=== PATIENT | male | born 1950 | race Two or more races ===

== ENCOUNTER 2022-10-04 07:54 | Inpatient (IN) | payer MEDICARE, OTHER ==
[~2022-10-04] VITALS: Ht 180.3 cm; Wt 44.9 kg
--- NOTE | 2022-10-04 08:20 | NUR ---
ESTABLISHED IV ACCESS, 20G LEFT AC. BLOOD DRAWN INCLUDING CULTURES AND SENT TO LAB.
[2022-10-04] MEDS ORDERED: ACET-868 GT (08:21)
[2022-10-04] MEDS ORDERED: AMIN30LI2 GT (08:21)
[2022-10-04] MEDS ORDERED: DOCU-141 GT (08:21)
[2022-10-04] MEDS ORDERED: CLOP75TA15 GT (08:21)
[2022-10-04] MEDS ORDERED: BISA10SU11 RC (08:21)
[2022-10-04] MEDS ORDERED: OLAN2.5T3 GT (08:21)
[2022-10-04] MEDS ORDERED: LEVO125T8 GT (08:21)
[2022-10-04] MEDS ORDERED: NUTR250L61 GT ×2 (08:21)
[2022-10-04] MEDS ORDERED: AMLO5TAB4 GT (08:21)
[2022-10-04] MEDS ORDERED: MAGN400O6 GT (08:21)
[2022-10-04] MEDS ORDERED: NA P133E RC (08:21)
[2022-10-04] MEDS ORDERED: CRAN3875 GT (08:21)
[2022-10-04] MEDS ORDERED: ASPI-1169 GT (08:21)
[2022-10-04 08:29] LABS: BASOPHILS % (AUTO) 0.2 % (0.0-2.0); EOSINOPHILS % (AUTO) 2.3 % (0.0-6.0); HEMATOCRIT 28 % (39-51); HEMOGLOBIN 8.8 g/dL (13.5-17.5); LYMPHOCYTES # (AUTO) 0.6 K/uL (0.8-4.8); LYMPHOCYTES % (AUTO) 13.6 % (20.0-44.0); MEAN CORPUSCULAR HGB CONC 32 g/dl (31.0-36.0); MEAN CORPUSCULAR VOLUME 91 fL (80-96); MONOCYTES # (AUTO) 0.2 K/uL (0.1-1.30); NEUTROPHILS # (AUTO) 3.7 K/uL (1.8-8.9); NEUTROPHILS % (AUTO) 79.9 % (43.0-81.0); PLATELET COUNT (AUTO) 296 K/uL (150-450); RED BLOOD CELL COUNT(AUTO) 3.05 MIL/uL (4.5-6.0); WHITE BLOOD COUNT (AUTO) 4.6 K/uL (4.3-11.0)
[2022-10-04 08:43] LABS: ALANINE AMINOTRANSFERASE 53 U/L (12-78); ALBUMIN 2.6 g/dL (3.4-5.0); ALKALINE PHOSPHATASE 152 U/L (46-116); ASPARTATE AMINOTRANSFERASE 79 U/L (15-37); BILIRUBIN,DIRECT 0.1 mg/dL (0.0-0.2); BILIRUBIN,TOTAL 0.3 mg/dL (0.2-1.0); CALCIUM, SERUM 9.5 mg/dL (8.5-10.1); CARBON DIOXIDE 37 mmol/L (21-32); CHLORIDE 112 mmol/L (98-107); CREATININE 0.9 mg/dL (0.6-1.3); GLUCOSE 96 mg/dL (74-106); POTASSIUM 4.5 mmol/L (3.5-5.1); SODIUM SERUM 150 mmol/L (136-145); TOTAL PROTEIN, SERUM 6.8 g/dL (6.4-8.2); UREA NITROGEN, BLOOD 62 mg/dL (7-18)
--- NOTE | 2022-10-04 09:25 | NUR ---
covid swab collected and sent to lab
[2022-10-04] MEDS ORDERED: IV NS 0.9% 500 ML BAG IV ONE (09:30)
--- NOTE | 2022-10-04 11:01 | NUR ---
GOT BED 313-1.
--- NOTE | 2022-10-04 11:35 | NUR ---
INFORMED SENDING FACILITY, [facility], PATIENT WILL BE ADMITTED TO HOSPITAL
--- NOTE | 2022-10-04 11:50 | NUR ---
Report given to Aubrey MOISE for inpatient admission
[2022-10-04 12:30] VITALS: BP 113/67
--- NOTE | 2022-10-04 12:30 | NUR ---
RN NOTE- PT BROUGHT FROM ED FOR ADMISSION TELE / CACHECTIA/ HYPERNATREMIA. BEGIN ADMISSION PROCESS
--- NOTE | 2022-10-04 12:31 | NUR ---
WHEEL OF FORTUNE DEALER NOTE- 71-YEAR-OLD MALE ADMITTED FROM [facility] FOR HYPERNATREMIA AND CACHEXIA. PT IS 69 IN TALL AND 90 LBS. SOMNOLENT, LETHARGIC, NONVERBAL, AND CONTRACTED. VS BP 116/68, HR 61, RR 14, TEMP 97.9, O2 SAT 97% RA, PMHX DEMENTIA, PSYCHOSIS, GERD, PNA, HTN. PT HAS GT PLACEMENT 04/06, CURRENTLY NA 150, BLOOD CULTURES PENDING, DEHYDRATION WITH BUN AT 62, PT HAS NKA AND IS ON PLAVIX FOR VTE OF 2. SKIN WITH MULTIPLE SKIN TEARS, BRUISES, AND SCABS, RASH TO TRUNK AND TORSO, PHOTOS TAKEN AND DRESSINGS APPLIED. DR. FREEMAN SAW PT AND PLACED ORDERS. PT PUT ON BILATERAL WRIST RESTRAINTS FOR CLIMBING OUT OF BED AND REMOVING IV. IV FLUIDS 1/2 NS @ 75 ML/HR TO #22 RIGHT HAND INFUSING. ORDERS RECEIVED AND COMPLIED WITH. SIDE RAILS UP, ALARM ON, BED LOCKED. WILL MONITOR AND ASSIST.
[2022-10-04] MEDS ORDERED: MAG HYDROX/AL HYDROX/SIMETH 30 ML UDC GT PRN (13:30)
[2022-10-04] MEDS ORDERED: BISACODYL SUPP (10 MG) 10 MG/SUPP.RECT SUPP.RECT RC PRN (13:30)
[2022-10-04] MEDS ORDERED: Z GUARD REMEDY 4 OZ OINT TP PRN (13:30)
[2022-10-04] MEDS ORDERED: ONDANSETRON HCL/PF 4 MG/2 ML VIAL IVP PRN (13:30)
[2022-10-04] MEDS ORDERED: HYDROCODONE/APAP 5/325MG TABLET GT PRN (13:30)
[2022-10-04] MEDS ORDERED: MAGNESIUM HYDROXIDE 30 ML UDC GT PRN (13:30)
[2022-10-04] MEDS ORDERED: NA PHOS,M-B/NA PHOS,DI-BA 1 EA ENEMA RC PRN (13:30)
[2022-10-04] MEDS ORDERED: ACETAMINOPHEN 650 MG/20.3 ML UDC GT PRN (14:00)
[2022-10-04] MEDS: IV 1/2NS 1000 ML 1,000 ML IV PRN (14:21)
[2022-10-04 16:00] VITALS: BP 111/62
--- NOTE | 2022-10-04 16:00 | NUR ---
RN NOTE- GT PLACEMENT CHECKED. GT PATENT, FLUSHED. AWAITING DIETARY ORDERS FOR GT START.
[2022-10-04] MEDS: OLANZAPINE 2.5 MG TABLET GT SCH (16:33)
--- NOTE | 2022-10-04 18:00 | NUR ---
RN NOTE- JEVITY VIA GT AT 60/HR INITIATED. HOB UP AT 45. TOLERATING WELL.
--- NOTE | 2022-10-04 18:36 | NUR ---
RN CLOSING NOTE- PT LETHARGIC, SOMNOLENT. GT RUNNING JEVITY AT 60/HR. HOB UP. WRIST RESTRAINTS BILATERALLY IN PLACE. WOUNDS / SKIN TEARS COVERED W DRESSINGS. ALL NEEDS ATTENDED. IVF 1/2 NS AT 75/HR TO LEFT HAND #22G. SIDE RAILS UP, ALARM SET. MONITOR / ASSIST
--- NOTE | 2022-10-04 19:59 | NUR ---
MS RN OPENING NOTES: RECEIVED PATIENT AWAKE IN BED, BED IN LOW POSITION, CALL LIGHTS WITHIN REACH NO COMPLAIN OF PAIN AND DISCOMFORT AT THIS TIME ON ROOM AIR SATURATING WELL, PATIENT IS CONFUSED NONE VERBAL, ON NPO ON G TUBE FEEDING OF JEVITY @60ML/HR INFUSING WELL, HOB TO REMAIN AT 45 DEGREE IV LINE AT LEFT HAND #22 WITH ONGOING D5 1/2 NSS@75ML/HR INFUSING WELL, PATIENT ON BILATERAL SOFT WRIST RESTRAINT, KEPT CLEAN AND DRY ALL NEEDS MET WILL CONTINUE TO MONITOR.
[2022-10-04 20:00] VITALS: BP 128/71
[2022-10-04 20:16] VITALS: BP 128/71
[2022-10-05] VITALS (18 sets, daily range): BP systolic 55–105; BP diastolic 28–51
[2022-10-05] MEDS: IV 1/2NS 1000 ML 1,000 ML IV PRN ×3 (03:06→19:28)
--- NOTE | 2022-10-05 06:30 | NUR ---
RN NOTES: RECEIVED A LAB FOR PATIENTS BLOOD CULTURE RESULT IS POSITIVE FOR GRAM NEGATIVE RODS, NOTIFY U.S. SENATOR ALYCE AND ORDER VANCOMYCIN 1 GRAM ONE TIME AND PHARMACY TO DOSE, VANCO TROUGH AT 10/06/22 NOTED AND CARRY OUT.
--- NOTE | 2022-10-05 06:50 | NUR ---
MS RN CLOSING NOTES: RECEIVED PATIENT SLEEP IN BED COMFORTABLY BED IN LOW POSITION CALL LIGHTS WITHIN REACH, NO COMPLAIN OF PAIN AND DISCOMFORT AT THIS TIME, ON O2 INHALATION AT 2LPM SATURATING WELL, PATIENT IS A/OX0 NONE VERBAL, OPENS EYES, ON NPO , ON G TUBE FEEDING OF JEVITY1.2 @60ML/HR, IV LINE AT L HAND #22 WITH ONGOING 1/2 NSS@75ML/HR INFUSING WELL, PATIENT KEPT CLEAN AND DRY ALL NEEDS MET WILL CONTINUE TO MONITOR.
--- NOTE | 2022-10-05 07:00 | NUR ---
MS RN OPENING NOTES: RECEIVED PATIENT AWAKE IN BED IN LOW POSITION CALL LIGHTS WITHIN REACH, ON SOFT RESTRAINT, PATIENT IS PATIENT IS A/O X0, NON-VERBAL, HOWEVER RESPONDING WITH LITTLE MOVEMENTS, OPEN AND CLOSES EYES, NO COMPLAIN OF PAIN AND DISCOMFORT AT THIS TIME. ON O2 INHALATION AT 2LPM SATURATING WELL, ON G TUBE FEEDING OF JEVITY1.2 @60ML/HR, IV LINE AT L HAND #22 WITH ONGOING 1/2 NSS@75ML/HR INFUSING WELL, WILL CONTINUE TO MONITOR THE PATIENT.
[2022-10-05 07:23] LABS: BASOPHILS % (AUTO) 0.1 % (0.0-2.0); EOSINOPHILS % (AUTO) 0.3 % (0.0-6.0); HEMATOCRIT 26 % (39-51); HEMOGLOBIN 8.1 g/dL (13.5-17.5); LYMPHOCYTES # (AUTO) 0.2 K/uL (0.8-4.8); LYMPHOCYTES % (AUTO) 5.8 % (20.0-44.0); MEAN CORPUSCULAR HGB CONC 31 g/dl (31.0-36.0); MEAN CORPUSCULAR VOLUME 93 fL (80-96); MONOCYTES # (AUTO) 0.2 K/uL (0.1-1.30); MONOCYTES % (AUTO) 4.5 % (2.0-12.0); NEUTROPHILS # (AUTO) 3.6 K/uL (1.8-8.9); NEUTROPHILS % (AUTO) 89.3 % (43.0-81.0); PLATELET COUNT (AUTO) 181 K/uL (150-450); RED BLOOD CELL COUNT(AUTO) 2.76 MIL/uL (4.5-6.0)
[2022-10-05 07:39] LABS: CALCIUM, SERUM 8.8 mg/dL (8.5-10.1); CREATININE 0.8 mg/dL (0.6-1.3); PHOSPHORUS 3.3 mg/dL (2.5-4.9); POTASSIUM 4.4 mmol/L (3.5-5.1)
[2022-10-05 07:49] LABS: THYROID STIMULATING HORMONE 58.787 uIU/mL (0.358-3.74)
[2022-10-05] MEDS ORDERED: VANCOMYCIN 1 GM in IV D5W 250ml IV ONE (08:00)
[2022-10-05] MEDS: OLANZAPINE 2.5 MG TABLET GT SCH ×2 (08:38→17:35)
[2022-10-05] MEDS: LEVOTHYROXINE SODIUM 125 MCG TABLET GT SCH (08:38)
[2022-10-05] MEDS: ASPIRIN 81 MG TAB.CHEW GT SCH (08:38)
[2022-10-05] MEDS: PANTOPRAZOLE 40 MG/PACK PACK NG SCH (08:38)
[2022-10-05] MEDS: CLOPIDOGREL BISULFATE 75 MG TABLET GT SCH (08:38)
[2022-10-05] MEDS: DOCUSATE SODIUM LIQ 100 MG/10 ML UDC GT SCH (08:41)
[2022-10-05] MEDS: PROSOURCE / PROSTAT (PYXIS) 30 ML UDC GT SCH (09:00)
--- NOTE | 2022-10-05 09:25 | NUR ---
WOUND CARE CONSULT: PT PRESENTS WITH EXTREME CACHEXIA AND MULTIPLE SKIN ISSUES/WOUNDS, PRESENT ON ADMISSION INCLUDING LEFT CHEEK SKIN TEAR, LEFT ELBOW SKIN TEAR, RT LOWER LEG WOUND, DISCOLORATION TO BILATERAL FEET, GENERALIZED SKIN CONDITION/RASH WITH TINY SCABS ALL OVER BODY, RT HIP WOUND, RT SHOULDER WOUND AND DISCOLORATION TO LEFT GROIN REGION (UNKNOWN ETIOLOGY). DR FERRELL IN TO SEE PT. DR STAHL AND DR FAIR CALLED FOR SURGICAL AND DPM CONSULTS. DISCUSSED SKIN PROTECTION WITH NURSING STAFF. IN AGREEMENT WITH PLAN OF CARE. Addendum: 10/05/22 at 0927 by ALIN LEACH WNDNU Amended: Links added.
--- NOTE | 2022-10-05 10:35 | NUR ---
Patient unable to urinate on a urinalysis order. Waiting for an hour before requesting a straight noel order for some urine sample
--- NOTE | 2022-10-05 11:45 | NUR ---
MALE CONDOM INSERTED FOR URINE SAMPLE COLLECTION
[2022-10-05] MEDS ORDERED: OSMOLITE 1.2 CAL 1,000 ML LIQUID GT PRN (12:00)
--- NOTE | 2022-10-05 13:50 | NUR ---
UNABLE TO EXTRACT URINE UP TO THIS TIME
--- NOTE | 2022-10-05 18:20 | NUR ---
OBSERVED AND ASSESSED PATIENT ON SHALLOW BREATHING SPO2 AT 84 SHOWING SUDDEN UNRESPONSIVENESS WITH ABNORMAL VITAL SIGNS. PATIENT'S BP TAKEN 3X READING HYPOTENSIVE. IMMEDIATELY CALLED CHARGE NURSE FOR RAPID RESPONSE ACTIVATION. ORDERED STAT: ABG, BOLUS 250 CC 0.9 NS. BP TAKEN AFTER BOLUS RESULTED TO 80/48. SPO2 AT 99. IMMEDIATELY TRANSFERRED TO ICU. INFORMED
[2022-10-05] MEDS ORDERED: IV NS 0.9% 250 ML IV ONE (19:00)
--- NOTE | 2022-10-05 19:11 | NUR ---
VEGETABLE LOADER MACHINE OPERATOR OPENING NOTE PT RECEIVED S/P RAPID RESPONSE WITH INITIAL BP OF 84/32. AFTER BOLUS WITH NS 250 ML, BP 80/48; SEVERELY BRADYCARDIC AND HYPOTHERMIC WITH HR IN THE 30S AND INITIAL RECTAL TEMP OF 78.8. KRISETN HUGGER APPLIED AT THIS TIME. PT A/O X0, NON-VERBAL. PT ON SIMPLE FACE MASK AT 10L WITH CURRENT O2SAT OF 100%; NO S/S OF RESP DISTRESS, NO SOB OR COUGH, NON-LABORED AND EQUAL BREATHING. PT ATTACHED TO BEDSIDE MONITOR, SB WITH HR IN LOW 30S. NOTED TO HAVE PEG TUBE; NO FEEDING CURRENTLY INFUSING. IV ACCESS ON LEFT HAND 22G, INTACT AND PATENT; 1/2 NS INFUSING AT 75 ML/HR. BED IN LOWEST POSITION, CALL LIGHT WITHIN REACH, SIDE RAILS UP X3. WILL CONTINUE TO MONITOR THROUGHOUT THE NIGHT.
[2022-10-05 19:41] LABS: CALCIUM, SERUM 8.5 mg/dL (8.5-10.1); POTASSIUM 4.2 mmol/L (3.5-5.1)
[2022-10-05 20:09] LABS: BASOPHILS % (AUTO) 0.1 % (0.0-2.0); EOSINOPHILS % (AUTO) 0.5 % (0.0-6.0); HEMATOCRIT 25 % (39-51); HEMOGLOBIN 7.8 g/dL (13.5-17.5); LYMPHOCYTES # (AUTO) 0.1 K/uL (0.8-4.8); LYMPHOCYTES % (AUTO) 8.1 % (20.0-44.0); MEAN CORPUSCULAR HGB CONC 31 g/dl (31.0-36.0); MEAN CORPUSCULAR VOLUME 96 fL (80-96); MONOCYTES # (AUTO) 0.1 K/uL (0.1-1.30); MONOCYTES % (AUTO) 3.9 % (2.0-12.0); NEUTROPHILS # (AUTO) 1.5 K/uL (1.8-8.9); NEUTROPHILS % (AUTO) 87.4 % (43.0-81.0); PLATELET COUNT (AUTO) 144 K/uL (150-450); RED BLOOD CELL COUNT(AUTO) 2.61 MIL/uL (4.5-6.0)
[2022-10-05] MEDS: VANCOMYCIN 500 MG in IV D5W 100ml IV SCH (20:09)
[2022-10-05 20:32] LABS: WHITE BLOOD COUNT (AUTO) 1.7 K/uL (4.3-11.0)
--- NOTE | 2022-10-05 20:36 | NUR ---
RN NOTE PT'S BP OF 70/33, HR 31. DR. FERRELL INFORMED WITH ORDER FOR DOPAMINE WITH BP PARAMETER OF SBP <80. ORDER OBTAINED AND CARRIED OUT.
[2022-10-05] MEDS ORDERED: DOPamine 400 MG/D5W 250 ML RTU BAG IV PRN (21:00)
[2022-10-05] MEDS: DOPamine 400 MG in IV D5W 250 ML IV PRN (21:04)
--- NOTE | 2022-10-05 21:51 | NUR ---
RN NOTE CRITICAL FROM LAB, WBC 1.7 NOTED TO BE TRENDING DOWN FROM 4. GHASSAN NOTIFIED WITH ORDER FOR ZOSYN 3.375 GM IV Q6H. ORDER CARRIED OUT
[2022-10-05] MEDS ORDERED: NOREPINEPHRINE 8 MG in IV NS 0.9% 242 ML IV PRN (22:00)
[2022-10-05] MEDS ORDERED: PIPERACILLIN /TAZOBACTAM 3.375 G VIAL IV ONE (23:45)
[2022-10-05] MEDS: ZOSYN IVPB 3.375 G in IV D5W 50ml IV SCH (23:50)
[2022-10-06] VITALS (93 sets, daily range): BP systolic 46–159; BP diastolic 21–85
[2022-10-06] MEDS ORDERED: NOREPINEPHRINE 4 MG/4 ML AMPUL IV ONE (01:27)
[2022-10-06 04:16] LABS: BASOPHILS % (AUTO) 0.3 % (0.0-2.0); EOSINOPHILS % (AUTO) 0.8 % (0.0-6.0); HEMATOCRIT 28 % (39-51); HEMOGLOBIN 8.9 g/dL (13.5-17.5); LYMPHOCYTES # (AUTO) 0.1 K/uL (0.8-4.8); LYMPHOCYTES % (AUTO) 6.9 % (20.0-44.0); MEAN CORPUSCULAR HGB CONC 32 g/dl (31.0-36.0); MEAN CORPUSCULAR VOLUME 92 fL (80-96); MONOCYTES % (AUTO) 2.2 % (2.0-12.0); NEUTROPHILS # (AUTO) 0.7 K/uL (1.8-8.9); NEUTROPHILS % (AUTO) 89.8 % (43.0-81.0); PLATELET COUNT (AUTO) 218 K/uL (150-450); RED BLOOD CELL COUNT(AUTO) 3.02 MIL/uL (4.5-6.0)
[2022-10-06 04:23] LABS: ALBUMIN 2.1 g/dL (3.4-5.0); BILIRUBIN,TOTAL 0.3 mg/dL (0.2-1.0); CALCIUM, SERUM 8.4 mg/dL (8.5-10.1); CREATININE 1.2 mg/dL (0.6-1.3); MAGNESIUM 2.5 mg/dL (1.8-2.4); POTASSIUM 3.9 mmol/L (3.5-5.1); TOTAL PROTEIN, SERUM 5.8 g/dL (6.4-8.2)
[2022-10-06 04:26] LABS: WHITE BLOOD COUNT (AUTO) 0.8 K/uL (4.3-11.0)
[2022-10-06] MEDS ORDERED: DEXTROSE 50%-WATER 50 ML DISP.SYRIN IVP STA ×2 (04:28→04:34)
[2022-10-06] MEDS ORDERED: BLOOD SUGAR DIAGNOSTIC 1 EACH STRIP IN SCH ×2 (04:30→05:00)
[2022-10-06 05:28] LABS: BAND % (MANUAL) 6 % (0.0-5.0); BASOPHILS % (MANUAL) 0 % (0.0-2.0); EOSINOPHILS % (MANUAL) 0 % (0-4); LYMPHOCYTES % (MANUAL) 9 % (16-48); MONOCYTES % (MANUAL) 4 % (0-11.0); NEUTROPHILS % (MANUAL) 81 (42-76)
[2022-10-06] MEDS ORDERED: PIPERACILLIN /TAZOBACTAM 3.375 G VIAL IV ONE (05:42)
[2022-10-06] MEDS ORDERED: DOPamine 400MG/D5W 250ML RTU 250 ML ONE (05:43)
[2022-10-06] MEDS: DOPamine 400 MG in IV D5W 250 ML IV PRN (05:44)
[2022-10-06] MEDS: ZOSYN IVPB 3.375 G in IV D5W 50ml IV SCH (05:53)
[2022-10-06] MEDS ORDERED: IV D5/0.45 NACL 1,000 ML IV PRN (06:00)
[2022-10-06] MEDS ORDERED: HYDROCORTISONE SOD SUCCINATE 100 MG/2 ML VIAL IV ONE (08:00)
[2022-10-06] MEDS: HYDROCORTISONE SOD SUCCINATE 100 MG/2 ML VIAL IV SCH ×3 (08:30→20:20)
[2022-10-06] MEDS: CLOPIDOGREL BISULFATE 75 MG TABLET GT SCH (08:31)
[2022-10-06] MEDS: DOCUSATE SODIUM LIQ 100 MG/10 ML UDC GT SCH (08:31)
[2022-10-06] MEDS: OLANZAPINE 2.5 MG TABLET GT SCH ×2 (08:31→17:41)
[2022-10-06] MEDS: PANTOPRAZOLE 40 MG/PACK PACK NG SCH (08:31)
[2022-10-06] MEDS: ASPIRIN 81 MG TAB.CHEW GT SCH (08:31)
[2022-10-06] MEDS: LEVOTHYROXINE SODIUM 125 MCG TABLET GT SCH (08:34)
[2022-10-06 08:47] LABS: THYROID STIMULATING HORMONE 44.343 uIU/mL (0.358-3.74)
[2022-10-06] MEDS: LEVOTHYROXINE INJ 100 MCG VIAL IV SCH (09:16)
[2022-10-06] MEDS: PROSOURCE / PROSTAT (PYXIS) 30 ML UDC GT SCH (09:18)
[2022-10-06 09:19] LABS: ABG OXYGEN SATURATION 98.4 % (92.0-98.5); ABG PCO2 51.1 mmHg (35.0-45.0); ABG PH 7.384 (7.350-7.450); AaDO2 534.9 mmHg; MetHb 0.1 % (0.0-1.5); O2Hb 98.3 % (94.0-97.0); SITE, ABG Right Femoral; VENT MODE, BG NON REBREATHER
[2022-10-06] MEDS: VANCOMYCIN 500 MG in IV D5W 100ml IV SCH ×2 (09:55→20:07)
[2022-10-06 10:14] LABS: BAND % (MANUAL) 20 % (0.0-5.0); LYMPHOCYTES % (MANUAL) 17 % (16-48); MONOCYTES % (MANUAL) 8 % (0-11.0); NEUTROPHILS % (MANUAL) 55 (42-76)
[2022-10-06] MEDS: IV D5/0.45 NACL 1,000 ML IV PRN ×2 (11:00→22:41)
[2022-10-06] MEDS: NOREPINEPHRINE 32 MG in IV NS 0.9% 242 ML IV PRN (11:08)
[2022-10-06] MEDS: D5W IV PRN (11:18)
[2022-10-06] MEDS: DOPAMINE IV PRN (11:18)
[2022-10-06] MEDS: PIPERACILLIN /TAZOBACTAM 3.375 G in IV D5W 50 ML IV SCH ×3 (12:47→23:55)
--- NOTE | 2022-10-06 19:30 | NUR ---
PT RECEIVED ASLEEP WITH INITIAL BP OF 53/21. INCREASED LEVO TO 1.0. RECHECKED BP 106/57. HYPOTHERMIC WITH INITIAL TEMP OF 96.0. KRISTEN HUGGER IN PLACE. PT A/O X0, NON-VERBAL. PT ON NRB MASK AT 15L WITH CURRENT O2SAT OF 83%; NOTED TO HAVE PEG TUBE IN PLACE; FEEDING CURRENTLY ON HOLD TO PREVENT ASPIRATION. IV ACCESS ON LEFT HAND 20G, RT THUMB 20G; CUONG ML INFUSING D5 1/2 NS INFUSING AT 75 ML/HR. LEVO AND DOPAMIN NEEDED AND ORDERED. SAFETY MEASURES IN PLACE. HEAD OF BED ON SEMI FOWLERS POSITION, HEIGHT OF BED IN LOWEST POSITION, CALL LIGHT WITHIN REACH, SIDE RAILS UP X3. WILL CONTINUE TO MONITOR AND WILL CONTINUE PLAN OF CARE.
[2022-10-07] VITALS (90 sets, daily range): BP systolic 54–247; BP diastolic 22–120
[2022-10-07] MEDS: NOREPINEPHRINE 32 MG in IV NS 0.9% 242 ML IV PRN ×2 (00:09→13:44)
[2022-10-07 03:53] LABS: ALANINE AMINOTRANSFERASE 55 U/L (12-78); ALBUMIN 1.8 g/dL (3.4-5.0); ALKALINE PHOSPHATASE 79 U/L (46-116); ASPARTATE AMINOTRANSFERASE 100 U/L (15-37); BILIRUBIN,TOTAL 0.4 mg/dL (0.2-1.0); CALCIUM, SERUM 7.9 mg/dL (8.5-10.1); CARBON DIOXIDE 29 mmol/L (21-32); CHLORIDE 110 mmol/L (98-107); CREATININE 1.8 mg/dL (0.6-1.3); GLUCOSE 72 mg/dL (74-106); MAGNESIUM 2.4 mg/dL (1.8-2.4); PHOSPHORUS 4.7 mg/dL (2.5-4.9); SODIUM SERUM 146 mmol/L (136-145); TOTAL PROTEIN, SERUM 5.7 g/dL (6.4-8.2); UREA NITROGEN, BLOOD 76 mg/dL (7-18)
[2022-10-07 04:30] LABS: BASOPHILS % (AUTO) 0.1 % (0.0-2.0); EOSINOPHILS % (AUTO) 0.1 % (0.0-6.0); HEMATOCRIT 30 % (39-51); HEMOGLOBIN 9.3 g/dL (13.5-17.5); LYMPHOCYTES # (AUTO) 0.2 K/uL (0.8-4.8); LYMPHOCYTES % (AUTO) 1.4 % (20.0-44.0); MEAN CORPUSCULAR HGB CONC 31 g/dl (31.0-36.0); MEAN CORPUSCULAR VOLUME 92 fL (80-96); MONOCYTES # (AUTO) 0.3 K/uL (0.1-1.30); MONOCYTES % (AUTO) 1.9 % (2.0-12.0); NEUTROPHILS # (AUTO) 15.4 K/uL (1.8-8.9); NEUTROPHILS % (AUTO) 96.5 % (43.0-81.0); PLATELET COUNT (AUTO) 250 K/uL (150-450); RED BLOOD CELL COUNT(AUTO) 3.23 MIL/uL (4.5-6.0)
[2022-10-07] MEDS: HYDROCORTISONE SOD SUCCINATE 100 MG/2 ML VIAL IV SCH (05:14)
[2022-10-07] MEDS: PIPERACILLIN /TAZOBACTAM 3.375 G in IV D5W 50 ML IV SCH ×3 (05:14→17:31)
--- NOTE | 2022-10-07 06:45 | NUR ---
PT ASLEEP. A/O X0, NON-VERBAL. PT ON NRB MASK AT 15L WITH CURRENT O2SAT OF 100%; HAS PEG TUBE IN PLACE; FEEDING CURRENTLY ON HOLD TO PREVENT ASPIRATION. IV ACCESS ON LEFT HAND 20G, RT THUMB 20G; CUONG ML INFUSING D5 1/2 NS INFUSING AT 75 ML/HR. LEVO AND DOPAMINE NEEDED AND ORDERED. KRISTEN HUGGER IN PLACE. DUE MEDS GIVEN. SAFETY MEASURES MAINTAINED. HEAD OF BED ON SEMI FOWLERS POSITION, HEIGHT OF BED IN LOWEST POSITION, CALL LIGHT WITHIN REACH, SIDE RAILS UP X3. WILL ENDORSE TO NEXT NURSE ON DUTY FOR CONTINUITY OF CARE.
[2022-10-07] MEDS: LEVOTHYROXINE INJ 100 MCG VIAL IV SCH (08:58)
[2022-10-07] MEDS: DOCUSATE SODIUM LIQ 100 MG/10 ML UDC GT SCH (08:58)
[2022-10-07] MEDS: PANTOPRAZOLE 40 MG/PACK PACK NG SCH (08:59)
[2022-10-07] MEDS: OLANZAPINE 2.5 MG TABLET GT SCH ×2 (08:59→16:36)
[2022-10-07] MEDS: CLOPIDOGREL BISULFATE 75 MG TABLET GT SCH (08:59)
[2022-10-07] MEDS: ASPIRIN 81 MG TAB.CHEW GT SCH (08:59)
[2022-10-07] MEDS: VANCOMYCIN 500 MG in IV D5W 100ml IV SCH (09:01)
[2022-10-07] MEDS: PROSOURCE / PROSTAT (PYXIS) 30 ML UDC GT SCH (09:01)
[2022-10-07 10:08] LABS: ABG BASE EXCESS 4.7 mmol/L; ABG OXYGEN SATURATION 99.3 % (92.0-98.5); ABG PCO2 41.8 mmHg (35.0-45.0); ABG PH 7.459 (7.350-7.450); ABG PO2 314.6 mmHg (75.0-100.0); AaDO2 356.6 mmHg; COHb 0.3 % (0.5-1.5); MetHb 0.4 % (0.0-1.5); O2Hb 98.6 % (94.0-97.0); SITE, ABG Right Radial; VENT MODE, BG 15 LPM NRB
[2022-10-07 12:03] LABS: BAND % (MANUAL) 14 % (0.0-5.0); BASOPHILS % (MANUAL) 0 % (0.0-2.0); EOSINOPHILS % (MANUAL) 0 % (0-4); LYMPHOCYTES % (MANUAL) 3 % (16-48); MONOCYTES % (MANUAL) 2 % (0-11.0); NEUTROPHILS % (MANUAL) 81 (42-76)
[2022-10-07] MEDS: IV D5/0.45 NACL 1,000 ML IV PRN (13:42)
[2022-10-07] MEDS: DOPAMINE IV PRN (13:43)
[2022-10-07] MEDS: D5W IV PRN (13:43)
--- NOTE | 2022-10-07 19:00 | NUR ---
LINER CHECKER. INITIAL ASSESSMENT.RECEIVED THE PT REST IN BED. PT IS OBTUNDED, OXYGEN 10L VIA NON RE BREATHER. SAT 97%, NO ACUTE DISTRESS NOTED. DEPARTMENT ADMINISTRATOR SHOWING NSR, IV LT UPPER ARM PICC LINE. DOPAMINE 20MCG/KG/MIN, LEVOPHED 0.5 MCG/KG/MIN. GT INTACT. PT IS NPO. WILL CONTINUE TO MONITOR VITALS.
[2022-10-08] VITALS (89 sets, daily range): BP systolic 44–140; BP diastolic 30–70
[2022-10-08] MEDS: PIPERACILLIN /TAZOBACTAM 3.375 G in IV D5W 50 ML IV SCH ×5 (02:23→23:13)
[2022-10-08] MEDS: VANCOMYCIN 500 MG in IV D5W 100ml IV SCH ×2 (02:23→20:52)
[2022-10-08] MEDS: IV D5/0.45 NACL 1,000 ML IV PRN ×2 (02:42→19:10)
[2022-10-08 03:49] LABS: CALCIUM, SERUM 7.6 mg/dL (8.5-10.1); CARBON DIOXIDE 31 mmol/L (21-32); CHLORIDE 110 mmol/L (98-107); CREATININE 1.8 mg/dL (0.6-1.3); GLUCOSE 88 mg/dL (74-106); POTASSIUM 4.7 mmol/L (3.5-5.1); SODIUM SERUM 146 mmol/L (136-145)
[2022-10-08 03:59] LABS: UREA NITROGEN, BLOOD 87 mg/dL (7-18)
--- NOTE | 2022-10-08 06:30 | NUR ---
horticulture teacher. am care given. remaining same ivfs and levophed 0.3mcg/kg/min, dopamine 20mcg/ml . GT clamped. hob elevated. TURN AND REPOSITION Q2H. WILL CONTINUE TO MONITOR VITALS,
[2022-10-08] MEDS: OLANZAPINE 2.5 MG TABLET GT SCH ×2 (08:21→17:10)
[2022-10-08] MEDS: PANTOPRAZOLE 40 MG/PACK PACK NG SCH (08:21)
[2022-10-08] MEDS: CLOPIDOGREL BISULFATE 75 MG TABLET GT SCH (08:21)
[2022-10-08] MEDS: ASPIRIN 81 MG TAB.CHEW GT SCH (08:21)
[2022-10-08] MEDS: DOCUSATE SODIUM LIQ 100 MG/10 ML UDC GT SCH (08:21)
[2022-10-08] MEDS: LEVOTHYROXINE INJ 100 MCG VIAL IV SCH (08:22)
[2022-10-08] MEDS: PROSOURCE / PROSTAT (PYXIS) 30 ML UDC GT SCH (09:24)
--- NOTE | 2022-10-08 19:15 | NUR ---
DEVELOPMENT EDUCATOR NOTE RECEIVED PT FOR CONTINUITY OF CARE. PATIENT OBTUNDED IN NO S/SX OF ACUTE DISTRESS AT THIS TIME; CURRENTLY ON 10L OF 02 VIA NRB MASK, WITH 02 SAT >95% AT THIS TIME. RECEIVED PT WITH RUNNING D51/2NS@75CC/HR AND DOPAMINE RECEIVED AT 20MCG/KG/MIN RUNNING, MONITORED AND ADJUSTED PER PROTOCOL. WILL ENSURE SAFETY MEASURES WITHIN THE SHIFT. PATIENT BED ALARM IS ON. HEAD OF BED ELEVATED. BED IS LOCKED, IN LOWEST POSITION AND SIDE RAILS UP. CALL LIGHT WITHIN REACH OF THE PATIENT. APPLICABLE ISOLATION PRECAUTIONS IN PLACE. WILL CONTINUE TO MONITOR AND REASSESS FOR ANY CHANGES AND WILL CARRY OUT ANY ONGOING AND ACTIVE MD ORDER.
--- NOTE | 2022-10-08 20:11 | NUR ---
RN NOTES PT IS STABLE, VSS, NO VISUAL SIGNS OF PAIN AT THIS TIME, ALL DUE MEDICATIONS GIVEN. REPORT GIVEN TO ONCOMING NURSE FOR CONTINUATION OF CARE.
[2022-10-08] MEDS: DOPAMINE IV PRN (21:37)
[2022-10-08] MEDS: D5W IV PRN (21:37)
[2022-10-09] VITALS (85 sets, daily range): BP systolic 98–143; BP diastolic 48–72
--- NOTE | 2022-10-09 04:00 | NUR ---
HOSPITAL SCIENTIST NOTE PATIENT REMAINED TO BE IN NO SIGNS OF ACUTE RESPIRATORY DISTRESS , VITAL SIGNS STABLE AT THIS TIME. REGULAR TURNING AND REPOSITIONING DONE AND AM PATIENT CARE RENDERED WILL. CONTINUE TO MONITOR AND REASSESS FOR ANY CHANGES THROUGHOUT THE SHIFT.
[2022-10-09 04:57] LABS: CALCIUM, SERUM 7.8 mg/dL (8.5-10.1); CREATININE 1.3 mg/dL (0.6-1.3); POTASSIUM 3.2 mmol/L (3.5-5.1)
[2022-10-09] MEDS: PIPERACILLIN /TAZOBACTAM 3.375 G in IV D5W 50 ML IV SCH ×4 (05:01→23:04)
--- NOTE | 2022-10-09 06:49 | NUR ---
RUBBER BOOTS AND SHOES REPAIRER CLOSING NOTE PATIENT REMAINS IN ROOM IN NO SIGNS OF RESPIRATORY DISTRESS, PATIENT STILL ON 10L OF 02 VIA NRB MASK, WITH 02 SAT >95%. SAFETY MEASURES IMPLEMENTED, BED IN LOWEST POSITION, LOCKED, SIDE RAILS UP, CALL LIGHT WITHIN REACH. ALL NEEDS AND ORDERS ADDRESSED DURING THE SHIFT. IV ACCESS MAINTAINED INTACT, SECURED AND FLUSHING WELL. D5 1/2NS @75MLS/HR. ALL DUE MEDS GIVEN ORDERED & SCHEDULED ; PATIENT TOLERATED WELL. STILL WITH ONGOING DOPAMINE DRIP OF 20MCG/KG/MIN RUNNING AND MONITORED PER PROTOCOL. STILL NPO; TUBE FEEDING HOLD AT THIS TIME. PATIENT KEPT CLEAN AND COMFORTABLE WITHIN THE SHIFT. PATIENT ENDORSED TO INCOMING SHIFT RN WITH STABLE VITAL SIGN AND FOR CONTINUITY OF CARE.
--- NOTE | 2022-10-09 07:45 | NUR ---
ICU/RN PT IS ON SIPMLE MASK AT 10L,SAT O2-97%.ON DOPAMINE DRIP.AND IV FLUIDS .NPO.G-TUBE CLAPMED.PT IS OPEN EYES .RESPOSIVE ON PAIN STIMULATION NON-VERBAL .NO PAIN REPORTED AT THIS TIME.INCONTINENET.GARETH CARE PROVIDED.CONDOM CATH PLACED.PT HAS MULTIPLY WOUNDS AND BRUISES ALL OVER THE BODY.LOWER BACK. ORAL CARE PROVIDED.LABS REVIEW . NOTIFIED.REPOSITION FOR COMFORT.SUCTION PROVIDED.
[2022-10-09] MEDS ORDERED: POTASSIUM CHLORIDE 20 MEQ POWDER PACKET GT ONE ×2 (08:00→20:00)
[2022-10-09] MEDS: PANTOPRAZOLE 40 MG/PACK PACK NG SCH (08:48)
[2022-10-09] MEDS: DOCUSATE SODIUM LIQ 100 MG/10 ML UDC GT SCH (08:48)
[2022-10-09] MEDS: ASPIRIN 81 MG TAB.CHEW GT SCH (08:49)
[2022-10-09] MEDS: LEVOTHYROXINE INJ 100 MCG VIAL IV SCH (08:49)
[2022-10-09] MEDS: CLOPIDOGREL BISULFATE 75 MG TABLET GT SCH (08:49)
[2022-10-09] MEDS: OLANZAPINE 2.5 MG TABLET GT SCH ×2 (08:49→17:23)
[2022-10-09] MEDS: IV D5/0.45 NACL 1,000 ML IV PRN (08:50)
[2022-10-09] MEDS: PROSOURCE / PROSTAT (PYXIS) 30 ML UDC GT SCH (08:50)
--- NOTE | 2022-10-09 09:00 | NUR ---
ICU/RN DUE MEDS ARE GIVEN ORDERED.PT HAS G-TUBE. STILL NPO AND HAS MORE THEN 200 ML DARK GREEN RESIDUAL.DR CROWELL NOTIFIED.
[2022-10-09] MEDS: LEVOTHYROXINE SODIUM 125 MCG TABLET PO SCH (10:30)
[2022-10-09] MEDS: METOCLOPRAMIDE HCL 10 MG/2 ML VIAL IV SCH ×2 (13:40→17:23)
[2022-10-09] MEDS: VANCOMYCIN 500 MG in IV D5W 100ml IV SCH (13:41)
--- NOTE | 2022-10-09 18:10 | NUR ---
ICU/RN PM CARE PROVIDED.WOUND DRESSING DONE ORDERED.DUE MEDS ARE GIVEN ORDERED.REPOSITION FOR COMFORT.
--- NOTE | 2022-10-09 19:25 | NUR ---
CUSHION BUILDER. INITIAL ASSESSMENT RECEIVED THE PT REST IN BED, PT IS OBTUNDED, OXYGEN 10L VIA NONREBREATHER, HOB ELEVATED. SPOOL SORTER SHOWING SR. HOB ELEVATED. NPO. CONDOM CATH INTACT. URINE DRAINING. IV LT HAND PICC LINE. RT HAND MID LINE . DOPAMINE 5 MCG/KG ,WILL CONTINUE TO MONITOR VITALS.
[2022-10-10] VITALS (67 sets, daily range): BP systolic 108–147; BP diastolic 51–119
[2022-10-10] MEDS: METOCLOPRAMIDE HCL 10 MG/2 ML VIAL IV SCH ×4 (01:04→17:35)
[2022-10-10] MEDS: IV D5/0.45 NACL 1,000 ML IV PRN ×2 (02:02→17:35)
--- NOTE | 2022-10-10 02:55 | NUR ---
agriculture mechanic. am care given. remaining same oxygen and ivf tolerated well. sat 96%. no acute distress noted. monitor tech showing nsr. hob elevated, condom cath intact, urine draining, turn and reposition q2h. will continue to monitor vitals.
[2022-10-10] MEDS: PIPERACILLIN /TAZOBACTAM 3.375 G in IV D5W 50 ML IV SCH ×4 (05:03→23:06)
[2022-10-10 05:49] LABS: CALCIUM, SERUM 8.2 mg/dL (8.5-10.1); CREATININE 1.2 mg/dL (0.6-1.3); POTASSIUM 3.5 mmol/L (3.5-5.1)
--- NOTE | 2022-10-10 07:30 | NUR ---
OPENING NOTE: REPORT RECEIVED FROM SILKE MOISE. ORDERS AND LABS REVIEWED DURING REPORT. PT NEEDS TO BE ON OVERLAY AIR MATTRESS, WILL REORDER OVERLAY. PT IS DNR/DNI PER MD ORDERS. PT IS OBTUNDED. 8L SIMPLE MASK ON PATIENT. CONDOM CATH IN PLACE AND DRAINING WITHOUT DIFFICULTY. PT CHECKED ON HOURLY AND PRN BY NURSING STAFF.
[2022-10-10] MEDS ORDERED: DOPamine 800 MG in IV D5W 250 ML IV PRN (08:30)
[2022-10-10] MEDS: PANTOPRAZOLE 40 MG/PACK PACK NG SCH (08:48)
[2022-10-10] MEDS: LEVOTHYROXINE SODIUM 125 MCG TABLET PO SCH (08:48)
[2022-10-10] MEDS: ASPIRIN 81 MG TAB.CHEW GT SCH (08:48)
[2022-10-10] MEDS: OLANZAPINE 2.5 MG TABLET GT SCH ×2 (08:48→17:00)
[2022-10-10] MEDS: DOCUSATE SODIUM LIQ 100 MG/10 ML UDC GT SCH (08:48)
[2022-10-10] MEDS: VANCOMYCIN 500 MG in IV D5W 100ml IV SCH (08:49)
[2022-10-10] MEDS: PROSOURCE / PROSTAT (PYXIS) 30 ML UDC GT SCH (08:49)
[2022-10-10] MEDS: CLOPIDOGREL BISULFATE 75 MG TABLET GT SCH (08:49)
--- NOTE | 2022-10-10 14:15 | NUR ---
16F CHENG CATHETER INSERTED AT THIS TIME WITH MINIMAL DIFFICULTY. SLIGHT RESISTENCE WAS MET BUT WAS ABLE TO ADVANCE CHENG CATHETER PER PROTOCOL. CLEAR YELLOW URINE RETURNED. PT PREVIOUSLY HAD A CONDOM CATH THAT WAS LEAKING.
--- NOTE | 2022-10-10 17:26 | NUR ---
ZYPREZA DOSE HELD AT THIS TIME D/T PT BEING OBTUNDED
--- NOTE | 2022-10-10 17:59 | NUR ---
DR FERRELL ORDERED TO HOLD ZYPREXA D/T PT BEING OBTUNDED
--- NOTE | 2022-10-10 19:00 | NUR ---
RECEIVED REPORT FROM TERRA MOISE.
[2022-10-11] VITALS (22 sets, daily range): BP systolic 124–166; BP diastolic 55–92
[2022-10-11] MEDS: METOCLOPRAMIDE HCL 10 MG/2 ML VIAL IV SCH ×2 (01:39→06:40)
[2022-10-11] MEDS: VANCOMYCIN 500 MG in IV D5W 100ml IV SCH (01:39)
[2022-10-11 04:53] LABS: CARBON DIOXIDE 28 mmol/L (21-32); CHLORIDE 124 mmol/L (98-107); GLUCOSE 92 mg/dL (74-106); SODIUM SERUM 155 mmol/L (136-145); UREA NITROGEN, BLOOD 57 mg/dL (7-18)
[2022-10-11] MEDS: PIPERACILLIN /TAZOBACTAM 3.375 G in IV D5W 50 ML IV SCH (05:25)
[2022-10-11] MEDS: LEVOTHYROXINE SODIUM 125 MCG TABLET PO SCH (06:40)
--- NOTE | 2022-10-11 07:06 | NUR ---
REPORT GIVEN TO TERRA MOISE.
--- NOTE | 2022-10-11 07:30 | NUR ---
OPENING NOTE: REPORT RECEIVED FROM JUDY MOISE. LABS AND ORDERS REVIEWED DURING REPORT. PER REPORT CHENG CATHETER CONTINUES TO LEAK, WILL REPLACE CHENG TODAY WITH A KOUDE CATHETER ONCE AVAILABLE FROM [facility]. PT REMAINS OBTUNDED, ZYPREXA WILL BE HELD TODAY PER MD ORDERS. PT IS ON 4L NASAL CANNULA. DOPAMINE HAS BEEN OFF SINCE YESTERDAY AT 0900. PT CHECKED ON HOURLY AND PRN BY NURSING STAFF.
[2022-10-11] MEDS: OLANZAPINE 2.5 MG TABLET GT SCH (07:36)
[2022-10-11 07:52] LABS: BASOPHILS % (AUTO) 0.2 % (0.0-2.0); EOSINOPHILS % (AUTO) 0.6 % (0.0-6.0); LYMPHOCYTES # (AUTO) 0.7 K/uL (0.8-4.8); MEAN CORPUSCULAR HGB CONC 31 g/dl (31.0-36.0); MEAN CORPUSCULAR VOLUME 93 fL (80-96); MONOCYTES # (AUTO) 0.2 K/uL (0.1-1.30); MONOCYTES % (AUTO) 5.1 % (2.0-12.0); NEUTROPHILS % (AUTO) 77.1 % (43.0-81.0); PLATELET COUNT (AUTO) 53 K/uL (150-450); RED BLOOD CELL COUNT(AUTO) 1.87 MIL/uL (4.5-6.0); WHITE BLOOD COUNT (AUTO) 3.9 K/uL (4.3-11.0)
[2022-10-11 07:55] LABS: HEMOGLOBIN 5.4 g/dL (13.5-17.5)
[2022-10-11 07:56] LABS: HEMATOCRIT 17 % (39-51)
--- NOTE | 2022-10-11 08:02 | NUR ---
CBC RESULTS NOT CONSISTENT WITH PREVIOUS CBC RESULTS FROM 10/07/22. CBC REDRAW ORDERED TO VERIFY RESULTS.
[2022-10-11 09:22] LABS: LYMPHOCYTES # (AUTO) 0.5 K/uL (0.8-4.8); LYMPHOCYTES % (AUTO) 16.4 % (20.0-44.0); MEAN CORPUSCULAR HGB CONC 31 g/dl (31.0-36.0); MEAN CORPUSCULAR VOLUME 95 fL (80-96); MONOCYTES # (AUTO) 0.2 K/uL (0.1-1.30); NEUTROPHILS # (AUTO) 2.5 K/uL (1.8-8.9); NEUTROPHILS % (AUTO) 77.6 % (43.0-81.0); WHITE BLOOD COUNT (AUTO) 3.3 K/uL (4.3-11.0)
[2022-10-11 09:29] LABS: RED BLOOD CELL COUNT(AUTO) 1.75 MIL/uL (4.5-6.0)
[2022-10-11 09:31] LABS: HEMATOCRIT 17 % (39-51); HEMOGLOBIN 5.2 g/dL (13.5-17.5)
[2022-10-11 09:32] LABS: PLATELET COUNT (AUTO) 45 K/uL (150-450)
--- NOTE | 2022-10-11 09:38 | NUR ---
DR. FERRELL NOTIFIED OF CRITICAL LABS THIS AM. DR FERRELL GAVE THE ORDER FOR COMFORT CARE INSTEAD OF TREATING THE CRITICAL VALUES. DR FERRELL STATED THAT WHEN BIOETHICS MADE PT DNR IT WAS ALSO TO NOT ESCALATE CARE AND MOVE TOWARD COMFORT CARE.
[2022-10-11 10:13] LABS: LYMPHOCYTES % (MANUAL) 13 % (16-48); MONOCYTES % (MANUAL) 7 % (0-11.0); NEUTROPHILS % (MANUAL) 80 (42-76)
[2022-10-11] MEDS ORDERED: POTASSIUM CL. PREMIX PERIPHER. 50 ML IV SCH (11:00)
--- NOTE | 2022-10-11 11:01 | NUR ---
DR HADDAD AND PHARMACY NOTIFIED THAT PATIENT IS NOW COMFORT CARES AND NO FURTHER MEDS/LAB OR ESCALATION OF CARE HAS BEEN ORDERED BY DR FERRELL.
[2022-10-11] MEDS ORDERED: POTASSIUM CHLORIDE 20 MEQ POWDER PACKET GT ONE (11:30)
[2022-10-11] MEDS ORDERED: IV NS 0.9% 250 ML IV PRN (12:30)
[2022-10-11] MEDS: MORPHINE SULFATE INJ 2 MG/ML DISP.SYRIN IV PRN ×2 (14:14→16:37)
--- NOTE | 2022-10-11 19:00 | NUR ---
PT TRANSFERRED TO ROOM 310-1 VIA BED WITH 2 RNS ON OXYGEN FOR COMFORT MEASURES. BEDSIDE REPORT GIVEN TO JUANA MOISE. NO BELONGINGS TO BRING WITH PATIENT.
--- NOTE | 2022-10-11 19:45 | NUR ---
RN Opening Note Received patient in bed; a/o x, obtunded. On o2 inhalation @ 4 lpm via nasal cannula saturating @ 98%. Afebrile, in no acute distress.No s/s of pain or discomfort. With IV access on right upper arm midline, left upper arm picc line and left hand 20g; intact and saline locked. Patient is on comfort measures only. Safety measures implemented: call light and table within reach, side rails up x 3, bed in lowest locked position. Will continue plan of care.
[2022-10-12] MEDS: MORPHINE SULFATE INJ 2 MG/ML DISP.SYRIN IV PRN ×5 (00:22→18:46)
--- NOTE | 2022-10-12 07:15 | NUR ---
RN Closing Note Patient resting comfortably in bed; awake, with eyes open. On o2 inhalation @ 4 lpm tolerating well. No s/s of pain or discomfort noted at this time. Side rails up x 3, call light within reach, kept clean and dry. Endorsed to [facility] Rodrgiuez for peng.
--- NOTE | 2022-10-12 07:24 | NUR ---
MS RN OPENING NOTE RECEIVED PATIENT OBTUNDED, RESPONSIVE TO DEEP PAIN. NO VERBAL OUTPUT. PATIENT IS ON OXYGEN AT 4LPM VIA NASAL CANULA, WITH EQUAL AND UNLABORED BREATHING WITH NO SIGNS OF RESPIRATORY DISTRESS, SATURATING AT 98-100%. PWITH IV ACCESS ON THE CRISTIAN PICC LINE, CUONG MIDLINE, AND LEFT HAND G20, ON SALINE LOCK, PATENT AND INTACT. COMFORT MEASURES PROVIDED. ON NORMAL BODY ALIGNMENT. SAFETY MEASURES ENSURED WITH BED IN LOW AND LOCK IN POSITION WITH SIDE RAILS X2 UP AND BED ALARM SET FOR SAFETY. CALL LIGHT WITHIN REACH AT ALL TIMES. WILL CONTINUE WITH PLAN OF CARE.
[2022-10-12 08:19] VITALS: BP 170/86
[2022-10-12] MEDS ORDERED: IV D5W 1,000 ML IV SCH (15:30)
--- NOTE | 2022-10-12 15:30 | NUR ---
MS RN NOTE SPOKE WITH PATIENT'S CONSERVATOR BRAIN BENNETT, . SHE SAID THAT SHE WILL FAX THE DPOA DOCUMENTS INCLUDING THE PAPERS TO BE FILLED UP FOR POSSIBLE BIOETHICS COMMITTEE RECOMMENDATION. UPDATED HER REGARDING PATIENT'S CONDITION AND COURSE OF HOSPITALIZATION AND THE POOR PROGNOSIS BY MD. I ALSO TOLD HER THAT I WILL FORWARD HER PHONE NUMBER SO THE DOCTOR CAN TALK TO HER REGARDING THE PATIENT IN DETAIL. VERBALIZED UNDERSTANDING AND APPRECIATION. CHARGE NURSE NOTIFIED. WILL ENDORSE ACCORDINGLY.
[2022-10-12 16:09] VITALS: BP 156/68
--- NOTE | 2022-10-12 16:10 | NUR ---
MS RN NOTE STILL AWAITING FAX FROM CONSERVATOR, SPOKE WITH HER, SHE SAID SHE SENT IT. [employer] FOR FAX.
--- NOTE | 2022-10-12 19:00 | NUR ---
MS RN CLOSING NOTE RECEIVED PATIENT OBTUNDED, RESPONSIVE TO DEEP PAIN. NO VERBAL OUTPUT. PATIENT IS ON OXYGEN AT 4LPM VIA NASAL CANULA, WITH EQUAL AND UNLABORED BREATHING WITH NO SIGNS OF RESPIRATORY DISTRESS, SATURATING AT 96-100%. WITH IV ACCESS ON THE CRISTIAN PICC LINE, CUONG MIDLINE, AND LEFT HAND G20, ON SALINE LOCK, PATENT AND INTACT. COMFORT MEASURES PROVIDED. ON NORMAL BODY ALIGNMENT. SAFETY MEASURES ENSURED WITH BED IN LOW AND LOCK IN POSITION WITH SIDE RAILS X2 UP AND BED ALARM SET FOR SAFETY. CALL LIGHT WITHIN REACH AT ALL TIMES. WILL ENDORSE TO NEXT SHIFT FOR CONTINUITY OF CARE.
--- NOTE | 2022-10-12 19:30 | NUR ---
MS RN OPENING NOTE RECEIVED PATIENT FROM AM NURSE, A/O X O OBTUNDED, RESPONSIVE TO DEEP PAIN, NO VERBAL OUTPUT; PATIENT IS ON OXYGEN AT 4LPM VIA NASAL CANULA, BREATHING EVENLY AND WITH NO SIGNS OF RESPIRATORY DISTRESS, SATURATING AT 100%. WITH IV ACCESS ON THE CRISTIAN PICC LINE, CUONG MIDLINE, AND LEFT HAND G20, ON SALINE LOCK, PATENT AND INTACT; PATIENT ON COMFORT MEASURES. ON NORMAL BODY ALIGNMENT; SAFETY MEASURES IMPLEMENTED WITH BED IN LOW AND LOCK IN POSITION WITH SIDE RAILS X 3 UP AND BED ALARM SET FOR SAFETY. CALL LIGHT WITHIN REACH AT ALL TIMES. WILL CONTINUE TO MONITOR THROUGHOUT SHIFT
[2022-10-12 20:00] VITALS: BP 120/75
[2022-10-12] MEDS ORDERED: CEFTRIAXONE 1 G VIAL ONE (22:46)
[2022-10-13] MEDS: MORPHINE SULFATE INJ 2 MG/ML DISP.SYRIN IV PRN ×3 (00:21→10:26)
--- NOTE | 2022-10-13 06:48 | NUR ---
MS RN CLOSING NOTE PATIENT IN BED, A/O X O OBTUNDED, RESPONSIVE TO DEEP PAIN; PATIENT IS ON OXYGEN AT 4LPM VIA NASAL CANULA, BREATHING EVENLY AND WITH NO SIGNS OF RESPIRATORY DISTRESS, SATURATING AT 100%. WITH IV ACCESS ON THE CRISTIAN PICC LINE, CUONG MIDLINE, AND LEFT HAND G20, ON SALINE LOCK, PATENT AND INTACT; PATIENT ON COMFORT MEASURES. ON NORMAL BODY ALIGNMENT; ADMINISTERED MEDICATIONS PRESCRIBED; MONITORED PATIENT ACCORDINGLY; SAFETY MEASURES IMPLEMENTED WITH BED IN LOW AND LOCK IN POSITION WITH SIDE RAILS X 3 UP, BED ALARM SET FOR SAFETY, CALL LIGHT WITHIN REACH AT ALL TIMES, WILL ENDORSE TO AM NURSE FOR PENG.
[2022-10-13 07:00] VITALS: BP 144/86
--- NOTE | 2022-10-13 07:20 | NUR ---
MS RN OPENING NOTE RECEIVED PATIENT OBTUNDED, RESPONSIVE TO DEEP PAIN. NO VERBAL OUTPUT. PATIENT IS ON OXYGEN AT 4LPM VIA NASAL CANULA, WITH EQUAL AND UNLABORED BREATHING WITH NO SIGNS OF RESPIRATORY DISTRESS. WITH IV ACCESS ON THE CRISTIAN PICC LINE, CUONG MIDLINE, AND LEFT HAND G20, ON SALINE LOCK, PATENT AND INTACT. COMFORT MEASURES PROVIDED. ON NORMAL BODY ALIGNMENT. SAFETY MEASURES ENSURED WITH BED IN LOW AND LOCK IN POSITION WITH SIDE RAILS X2 UP AND BED ALARM SET FOR SAFETY. CALL LIGHT WITHIN REACH AT ALL TIMES. WILL CONTINUE WITH PLAN OF CARE.
--- NOTE | 2022-10-13 13:10 | NUR ---
MS RN NOTE SEEN BY DR. GHASSAN MD UPDATED OF CONVERSATION WITH CONSERVATOR YESTERDAY. IN STABLE CONDITION.
[2022-10-13 16:00] VITALS: BP 143/76
--- NOTE | 2022-10-13 18:43 | NUR ---
MS RN CLOSING NOTE PATIENT OBTUNDED, RESPONSIVE TO DEEP PAIN. NO VERBAL OUTPUT. PATIENT IS ON OXYGEN AT 4LPM VIA NASAL CANULA, WITH EQUAL AND UNLABORED BREATHING WITH NO SIGNS OF RESPIRATORY DISTRESS. WITH IV ACCESS ON THE CRISTIAN PICC LINE, CUONG MIDLINE, AND LEFT HAND G20, ON SALINE LOCK, PATENT AND INTACT. COMFORT MEASURES PROVIDED. ON NORMAL BODY ALIGNMENT. SAFETY MEASURES ENSURED WITH BED IN LOW AND LOCK IN POSITION WITH SIDE RAILS X2 UP AND BED ALARM SET FOR SAFETY. CALL LIGHT WITHIN REACH AT ALL TIMES. WILL ENDORSE TO NEXT SHIFT FOR CONTINUITY OF CARE.
--- NOTE | 2022-10-13 19:44 | NUR ---
MS RN OPENING NOTE RECEIVED PATIENT FROM AM NURSE, ALERT AND ORIENTED X O, OBTUNDED, RESPONSIVE TO DEEP JOSE AND WITH NO VERBAL RESPONSE; PATIENT IS ON OXYGEN AT 4LPM VIA NASAL CANULA, BREATHING EVENLY; WITH ACCESS ON THE CRISTIAN PICC LINE, CUONG MIDLINE, AND LEFT HAND G20, ON SALINE LOCK, PATENT AND INTACT; PATIENT ON COMFORT MEASURES. ON NORMAL BODY ALIGNMENT; SAFETY MEASURES IMPLEMENTED WITH BED IN LOW AND LOCK IN POSITION WITH SIDE RAILS X 3 UP AND BED ALARM SET FOR SAFET; WILL CONTINUE TO MONITOR THROUGHOUT SHIFT
[2022-10-13 20:28] VITALS: BP 107/71
--- NOTE | 2022-10-14 06:46 | NUR ---
MS RN CLOSING NOTE PATIENT IN BED, ALERT AND ORIENTED X O, OBTUNDED, RESPONSIVE TO DEEP PAIN AND WITH NO VERBAL RESPONSE; PATIENT IS ON OXYGEN AT 4LPM VIA NASAL CANNULA, BREATHING EVENLY; WITH EPISODES OF SHALLOW BREATHING; WITH ACCESS ON THE CRISTIAN PICC LINE, CUONG MIDLINE, AND LEFT HAND G20, ON SALINE LOCK, PATENT AND INTACT; PATIENT ON COMFORT MEASURES; ON NORMAL BODY ALIGNMENT; MONITORED PATIENT ACCORDINGLY; SAFETY MEASURES IMPLEMENTED WITH BED IN LOW AND LOCK IN POSITION WITH SIDE RAILS X 3 UP AND BED ALARM SET FOR SAFETY; WILL ENDORSE TO AM NURSE FOR PENG.
[2022-10-14 07:00] VITALS: BP 111/57
--- NOTE | 2022-10-14 07:31 | NUR ---
MS RN OPENING NOTES: RECEIVED PATIENT AWAKE, A/OX0, OBTUNDED, RESPONSIVE TO DEEP PAIN AND WITH NO VERBAL RESPONSE; PATIENT IS ON OXYGEN AT 4LPM VIA NASAL CANULA, BREATHING EVENLY. IV ACCESS ON THE CRISTIAN PICC LINE, CUONG MIDLINE, AND LEFT HAND G20, ON SALINE LOCK, PATENT AND INTACT. CHENG CATH NOTED, DRAINING DARK YELLOW URINE. PATIENT ON COMFORT MEASURES. SAFETY MEASURES IMPLEMENTED WITH BED IN LOW AND LOCKED POSITION, SIDE RAILS UPX3, WILL CONT WITH PLAN OF CARE DURING SHIFT.
--- NOTE | 2022-10-14 09:00 | NUR ---
MS RN NOTES: RN SPOKE TO JORGE WHO INTRODUCED HERSELF PT'S EX . JORGE STATES THAT HER AND HER DAUGHTER LIVES IN [facility] AND THAT SHE IS WONDERING IF SHE WILL MAKE IT IN TIME TO FLY OUT TO [place] TO SEE HER EX . RN STATED THAT IT'S COMPLETELY UP TO PT'S FAMILY. RN CANNOT PREDICT OR RECOMMEND WHEN IS AN IDEAL TIME TO FLY TO [place]. JORGE VERBALIZED UNDERSTANDING. RN
[2022-10-14 16:00] VITALS: BP 96/61
--- NOTE | 2022-10-14 19:30 | NUR ---
RN Opening Notes Received pt in bed, obtunded. No respiratory distress noted. All needs met at this time.
--- NOTE | 2022-10-14 19:46 | NUR ---
MS RN CLOSING NOTES: PATIENT AWAKE, A/OX0, OBTUNDED, RESPONSIVE TO DEEP PAIN AND WITH NO VERBAL RESPONSE; PATIENT IS ON OXYGEN AT 4LPM VIA NASAL CANULA, BREATHING EVENLY. IV ACCESS ON THE CRISTIAN PICC LINE, CUONG MIDLINE, AND LEFT HAND G20, ON SALINE LOCK, PATENT AND INTACT. CHENG CATH NOTED, DRAINING DARK YELLOW URINE, DRAINED 300CC DURING SHIFT. PATIENT ON COMFORT MEASURES. KEPT PT CLEAN, DRY AND COMFORTABLE, SAFETY MEASURES IMPLEMENTED, ENDORSED TO PM SHIFT.
[2022-10-14 20:00] VITALS: BP 97/46
[2022-10-15] MEDS: MORPHINE SULFATE INJ 2 MG/ML DISP.SYRIN IV PRN ×4 (06:23→23:09)
--- NOTE | 2022-10-15 06:23 | NUR ---
RN NOTES Administered morphine to provide comfort since patient is having labored breathing with accessory muscle usage. Arched, rigid back with legs drawn up.
--- NOTE | 2022-10-15 06:54 | NUR ---
RN Closing Notes Received pt in bed, obtunded. No respiratory distress noted. All needs met at this time. All orders carried out. All needs met at this time. Will endorse to oncoming shift for PENG.
[2022-10-15 08:00] VITALS: BP 132/78
--- NOTE | 2022-10-15 09:33 | NUR ---
RN NOTES: PT'S DAUGHTER JESENIA CALLED, STATES SHE WOULD LIKE TO SPEAK TO PT OVER THE PHONE. RN HELD THE PHONE TO PT'S EAR, ADVISED DAUGHTER TO CALL UNIT ANYTIME IF SHE WANTS TO SPEAK TO HER DAD, PROVIDED UNIT TEL#, PT'S DAUGHTER VERBALIZED UNDERSTANDING.
--- NOTE | 2022-10-15 18:45 | NUR ---
RN NOTES: RN SPOKE TO BRAIN BENNETT CONSERVATOR, BRAIN REQUESTED DOCUMENTS SIGNED BY MD RN FAXED DOCUMENTS TO FAX # provided [phone] CONFIRMATION ATTACHED TO CHART
--- NOTE | 2022-10-15 18:51 | NUR ---
MS RN CLOSING NOTES: PATIENT HAS EYES OPEN, OBTUNDED, RESPONSIVE TO DEEP PAIN AND WITH NO VERBAL RESPONSE; PATIENT IS ON OXYGEN AT 4LPM VIA NASAL CANULA, BREATHING SHALLOW, UNLABORED. IV ACCESS ON THE CRISTIAN PICC LINE, CUONG MIDLINE, AND LEFT HAND G20, ON SALINE LOCK, PATENT AND INTACT. CHENG CATH NOTED, DRAINED DARK YELLOW URINE= 100 CC DURING SHIFT. PATIENT ON COMFORT MEASURES. PRN PAIN MGT GIVEN, KEPT PT CLEAN, DRY AND COMFORTABLE, SAFETY MEASURES IMPLEMENTED, WILL ENDORSE TO PM SHIFT.
--- NOTE | 2022-10-15 19:30 | NUR ---
MS RN OPENING NOTES: RECEIVED PATIENT AWAKE IN BED WITH OPEN EYES. A/OX0, OBTUNDED, RESPONSIVE TO DEEP PAIN . NON VERBAL .PATIENT IS ON OXYGEN AT 4LPM VIA NASAL CANULA, BREATHING EVENLY. NO RESPIRATORY DISTRESS NOTED. IV ACCESS ON THE CRISTIAN PICC LINE, CUONG MIDLINE, AND LEFT HAND G # 20 INTACT AND SALINE LOCK. CHENG CATH INTACT DRAINING DARK YELLOW URINE. PATIENT ON COMFORT MEASURES ONLY. PATIENT LOOKS COMFORTABLE AT THIS TIME .KEPT HOB ELEVATED FOR ASPIRATION PRECAUTION AND EASY BREATHING. ALL SAFETY MEASURES IN PLACE WITH BED IN LOW AND LOCKED POSITION, SIDE RAILS UPX3, WILL CONTINUE TO MONITOR CLOSELY.
--- NOTE | 2022-10-15 23:19 | NUR ---
RN NOTES PRN MORPHINE 1 ML GIVEN PER ORDER AT 2309 FOR COMFORT MEASURES.
--- NOTE | 2022-10-15 23:30 | NUR ---
CHARGE NURSE NOTES PATIENT AT THIS TIME, NO PULSE , PUPILS ARE DILATED, NO V/S
--- NOTE | 2022-10-16 00:10 | NUR ---
RN NOTES CALLED [facility] AT 0010 . WAS REPORTING THE PATIENT'S , AND THE LADY WAS ASKING ABOUT THE DETAILS. SHE WAS NOT SATISFIED WITH THE REPORT ASKED FOR CHARGE NURSE. AGAIN SHE WAS NOT SATISFIED, SPOKE WITH NURSING PRINCIPAL TECHNOLOGIST. THE PERSON WHO CALLED AND GOT THE REST OF THE REPORTS FROM CHARGE NURSE AND NURSE PRINCIPAL TECHNOLOGIST WAS SOPHIE. THE CASE NUMBER WAS [id number]. CHARGE NURSE NOTIFIED DR FERRELL AT 0012. CHARGE NURSE NOTIFIED OF THE ADMITTING OF THE , MARIA DE JESUS AT 0015. ALSO NURSE PRINCIPAL TECHNOLOGIST WAS NOTIFIED AT 0015.CHARGE NURSE CALLED LEGAL CONSERVATOR AT 0000, LEFT MASSAGE. CALLED DAUGHTER JESENIA WITH PHONE NUMBER [phone] AND LEFT MASSAGE AT 0047. NO BELONGINGS NOTED WITH THE PATIENT. CRISTIAN PICC LINE AND CUONG MIDLINE REMOVED COVERED WITH DRY DRESSING. NO BLEEDING NOTED. REMOVED CHENG CATHETER. POSTMORTEM CARE GIVEN BY THE SENIOR CLINICAL PROJECT MANAGER NURSE. BODY WAS TRANSFERED BY SECURITY TO THE [facility] [id number]. RECORD OF PAPER FILLED OUT AND PUT IN THE CHART.
== END 2022-10-15 23:30 | DRG 871 ==
LOC: ER 08:03 → MED 11:12 → TELE 13:01 → MED 13:27 → ICU 10-05 18:52 → MED 10-11 18:49 → UNDODISIN 10-16
PROVIDERS: ATTEND Legal Medicine
PROC: 05H933Z Insertion of Infusion Device into Right Brachial Vein, Percutaneous Approach (ICD-10-PCS; principal; 2022-10-05)
PROC: 02HV33Z Insertion of Infusion Device into Superior Vena Cava, Percutaneous Approach (ICD-10-PCS; 2022-10-07)
PROC: B548ZZA Ultrasonography of Superior Vena Cava, Guidance (ICD-10-PCS; 2022-10-07)
DX: A41.50 Gram-negative sepsis, unspecified (principal); J96.01 Acute respiratory failure with hypoxia; R65.21 Severe sepsis with septic shock; J96.02 Acute respiratory failure with hypercapnia; E44.0 Moderate protein-calorie malnutrition; E87.0 Hyperosmolality and hypernatremia; R64 Cachexia; G93.40 Encephalopathy, unspecified; J90 Pleural effusion, not elsewhere classified; J98.11 Atelectasis; N17.9 Acute kidney failure, unspecified; F03.90 Unspecified dementia, unspecified severity, without behavioral disturbance, psychotic disturbance, mood disturbance, and anxiety; R62.7 Adult failure to thrive; E03.9 Hypothyroidism, unspecified; K59.00 Constipation, unspecified; Z66 Do not resuscitate; Z51.5 Encounter for palliative care; Z20.822 Contact with and (suspected) exposure to COVID-19; D64.9 Anemia, unspecified; D72.819 Decreased white blood cell count, unspecified; K21.9 Gastro-esophageal reflux disease without esophagitis; F29 Unspecified psychosis not due to a substance or known physiological condition; Z91.81 History of falling; Z93.1 Gastrostomy status; R21 Rash and other nonspecific skin eruption; T14.8XXA Other injury of unspecified body region, initial encounter; X58.XXXA Exposure to other specified factors, initial encounter; Y92.9 Unspecified place or not applicable; Z79.02 Long term (current) use of antithrombotics/antiplatelets; Z79.82 Long term (current) use of aspirin; Z79.899 Other long term (current) drug therapy; R13.10 Dysphagia, unspecified; M62.50 Muscle wasting and atrophy, not elsewhere classified, unspecified site; E88.09 Other disorders of plasma-protein metabolism, not elsewhere classified; E16.2 Hypoglycemia, unspecified; L89.216 Pressure-induced deep tissue damage of right hip; E87.5 Hyperkalemia; E87.6 Hypokalemia; E86.0 Dehydration; I10 Essential (primary) hypertension; R00.1 Bradycardia, unspecified; E86.1 Hypovolemia
CPT/HCPCS: 36410; 36415; 36569; 36600; 71045-TC; 74018; 80048-TC; 80053-TC; 80061-TC; 80076-TC; 80202-TC; 82533; 82728-TC; 82803-TC; 82962-TC; 83540-TC; 83605-TC; 83735-TC; 84100-TC; 84439-TC; 84443-TC; 84484-TC; 85025-TC; 85730-TC; 87040-TC; 87081-TC; 93307-TC; 94799-TC; A4223; A4349; A6253; A6403; G0378; J0696; J1265; J1720; J2270; J2543; J2765; J3370; J3490; J7030; J7040; J7050; J7060